=== PATIENT | male | born 1960 | race Caucasian/White ===

== ENCOUNTER → 2016-05-29 | Outpatient (CLI) | payer OTHER | LOC: FIMAGING 13:02 | PROVIDERS: ATTEND Internal Medicine Hematology & Oncology | DX: R94.02 Abnormal brain scan (principal); R93.6 Abnormal findings on diagnostic imaging of limbs; M50.322 Other cervical disc degeneration at C5-C6 level; M51.34 Other intervertebral disc degeneration, thoracic region; M51.36 Other intervertebral disc degeneration, lumbar region ==

== ENCOUNTER → 2016-06-10 | Outpatient (CLI) | payer OTHER | LOC: BRMIMAGING 10:51 | PROVIDERS: ATTEND Internal Medicine Hematology & Oncology | DX: Z13.820 Encounter for screening for osteoporosis (principal) ==

== ENCOUNTER → 2017-09-16 | Outpatient (CLI) | payer OTHER | LOC: FIMAGING 15:13 | PROVIDERS: ATTEND Internal Medicine Hematology & Oncology | DX: C90.00 Multiple myeloma not having achieved remission (principal) ==

== ENCOUNTER → 2018-02-20 | Outpatient (CLI) | payer OTHER ==
[~2018-02-20] MED LIST: GADOBUTROL 10 ML VIAL IVP ONE
== END ==
LOC: FIMAGING 09:58
PROVIDERS: ATTEND Internal Medicine Hematology & Oncology
DX: M25.552 Pain in left hip (principal); M24.9 Joint derangement, unspecified; Z85.820 Personal history of malignant melanoma of skin
CPT/HCPCS: 82565-PO; A9585

== ENCOUNTER → 2018-07-06 | Outpatient (CLI) | payer OTHER | LOC: FIMAGING 08:17 | PROVIDERS: ATTEND Internal Medicine Hematology & Oncology | DX: M89.8X0 Other specified disorders of bone, multiple sites (principal); M51.36 Other intervertebral disc degeneration, lumbar region; M51.34 Other intervertebral disc degeneration, thoracic region; M50.322 Other cervical disc degeneration at C5-C6 level; C90.00 Multiple myeloma not having achieved remission ==